=== PATIENT | male | born 1975 | race African-American/Black ===

== ENCOUNTER 2016-05-12 23:58 | Emergency (ER) | payer BC, OTHER ==
[~2016-05-12] VITALS: Ht 172.7 cm; Wt 72.6 kg
[~2016-05-12 23:58] MED LIST: HIV MEDS; TESTOSTERONE
[2016-05-13 03:11] VITALS: BP 138/89
== END 2016-05-13 02:50 | disposition home or self-care (01) ==
LOC: ER 05-13 00:15
DX: J06.9 Acute upper respiratory infection, unspecified (principal)
CPT/HCPCS: 71010; 99283; A4606; Z7610

== ENCOUNTER 2018-04-24 11:49 | Emergency (ER) | payer SELFPAY ==
[~2018-04-24] VITALS: Ht 172.7 cm; Wt 74.8 kg
[2018-04-24 12:05] VITALS: BP 135/70
== END 2018-04-24 14:00 | disposition home or self-care (01) ==
LOC: ER 11:49
DX: L03.116 Cellulitis of left lower limb (principal)

== ENCOUNTER 2020-07-18 13:25 | Emergency (ER) | payer MEDICAID, OTHER ==
[~2020-07-18] VITALS: Ht 172.7 cm; Wt 77.1 kg
--- NOTE | 2020-07-18 13:36 | NUR ---
ppt rec'd to er c/o left thumb dog bite / dry blood notied lac pt is hiv positive left hand cleaned AWAITING EVALUATION BY ER PROVIDER.
[2020-07-18] MEDS ORDERED: IBUPROFEN 600 MG TABLET ONE (13:49)
--- NOTE | 2020-07-18 13:51 | NUR ---
pain is 8/10 left thumb motrin 600mg po given
[2020-07-18] MEDS ORDERED: IBUPROFEN 600 MG TABLET PO ONE (14:00)
[2020-07-18] MEDS ORDERED: HYDROCODONE/APAP 5/325MG TABLET PO ONE (14:00)
[2020-07-18] MEDS ORDERED: HYDROCODONE/APAP 5/325MG TABLET ONE (14:00)
[2020-07-18] MEDS ORDERED: AMOX-430 PO (14:03)
[2020-07-18] MEDS ORDERED: HYDR-3976 GT (14:04)
--- NOTE | 2020-07-18 14:05 | NUR ---
pt given norco 5/325 one tab po
--- NOTE | 2020-07-18 14:08 | NUR ---
PT. VERBALIZED UNDERSTANDING OF AFTERCARE INSTRUCTIONS.
[2020-07-18 14:11] VITALS: BP 133/80
--- NOTE | 2020-07-18 14:13 | NUR ---
PT. VERBALIZED UNDERSTANDING OF AFTERCARE INSTRUCTIONS.
== END 2020-07-18 14:13 | disposition home or self-care (01) ==
LOC: ER 13:27
DX: S60.312A Abrasion of left thumb, initial encounter (principal); Z60.2 Problems related to living alone; W54.0XXA Bitten by dog, initial encounter; Y93.89 Activity, other specified; Y92.89 Other specified places as the place of occurrence of the external cause; Y99.8 Other external cause status
CPT/HCPCS: 99283; A6403

== ENCOUNTER 2020-07-19 14:35 | Emergency (ER) | payer MEDICAID ==
[~2020-07-19] VITALS: Ht 172.7 cm; Wt 83.9 kg
[~2020-07-19 14:35] MED LIST changes: +AMOX-430 PO; +HYDR-3976 GT
[2020-07-19 14:41] VITALS: BP 127/71
[2020-07-19] MEDS ORDERED: TDAP [DIPH/PERTUSSIS/TET] 0.5 ML VIAL IM ONE ×2 (15:01→15:30)
--- NOTE | 2020-07-19 15:07 | NUR ---
Patient discharged to home in stable condition. Written and verbal after care instructions given. Patient verbalizes understanding of instruction.
== END 2020-07-19 15:07 | disposition home or self-care (01) ==
LOC: ER 14:41
DX: S61.052D Open bite of left thumb without damage to nail, subsequent encounter (principal); Z60.2 Problems related to living alone; Z79.899 Other long term (current) drug therapy; W54.0XXD Bitten by dog, subsequent encounter
CPT/HCPCS: 90715

== ENCOUNTER 2021-09-01 00:08 | Emergency (ER) | payer OTHER ==
[~2021-09-01] VITALS: Ht 172.7 cm; Wt 77.1 kg
[2021-09-01 00:56] VITALS: BP 135/85
--- NOTE | 2021-09-01 03:15 | NUR ---
Patient discharged to home in stable condition. Written and verbal after care instructions given. Patient verbalizes understanding of instruction. Pt ambulatory with a steady gait
== END 2021-09-01 03:15 | disposition home or self-care (01) ==
LOC: ER 00:08
DX: M25.461 Effusion, right knee (principal); Z60.2 Problems related to living alone; Z79.899 Other long term (current) drug therapy
CPT/HCPCS: 73564-TC

== ENCOUNTER 2022-04-19 12:27 | Emergency (ER) | payer OTHER ==
[~2022-04-19] VITALS: Ht 172.7 cm; Wt 74.8 kg
[2022-04-19 12:27] VITALS: BP 139/90
--- NOTE | 2022-04-19 12:35 | NUR ---
BIBS C/O BEING SICK X1WEEK AND FELT CONGESTED AND COUGHING UP PHLEGM X4DAYS
[2022-04-19] MEDS ORDERED: BENZONATATE 100 MG CAPSULE PO PRN (13:30)
[2022-04-19 14:02] LABS: BASOPHILS % (AUTO) 0.5 % (0.0-2.0); EOSINOPHILS % (AUTO) 1.3 % (0.0-6.0); HEMATOCRIT 43 % (39-51); HEMOGLOBIN 14.3 g/dL (13.5-17.5); LYMPHOCYTES # (AUTO) 1.9 K/uL (0.8-4.8); LYMPHOCYTES % (AUTO) 36.2 % (20.0-44.0); MEAN CORPUSCULAR HGB CONC 33 g/dl (31.0-36.0); MEAN CORPUSCULAR VOLUME 89 fL (80-96); MONOCYTES # (AUTO) 0.3 K/uL (0.1-1.30); PLATELET COUNT (AUTO) 271 K/uL (150-450); RED BLOOD CELL COUNT(AUTO) 4.81 MIL/uL (4.5-6.0); WHITE BLOOD COUNT (AUTO) 5.3 K/uL (4.3-11.0)
[2022-04-19 14:08] LABS: CREATININE 1.2 mg/dL (0.6-1.3); POTASSIUM 4.1 mmol/L (3.5-5.1)
[2022-04-19] MEDS ORDERED: BENZ-13 PO ×2 (14:27→14:34)
[2022-04-19] MEDS ORDERED: TYL2T PO ×2 (14:27→14:34)
--- NOTE | 2022-04-19 14:40 | NUR ---
patient left before medication was given. made aware
--- NOTE | 2022-04-19 14:56 | NUR ---
Patient discharged to home in stable condition. Written and verbal after care instructions given. Patient verbalizes understanding of instruction.
== END 2022-04-19 14:56 | disposition home or self-care (01) ==
LOC: ER 12:32
DX: J06.9 Acute upper respiratory infection, unspecified (principal); B97.89 Other viral agents as the cause of diseases classified elsewhere; Z20.822 Contact with and (suspected) exposure to COVID-19
CPT/HCPCS: 99284; 71045; 87426; 85025; 80048; 36415; C9803